=== PATIENT | male | born 1950 | race Caucasian/White ===

== ENCOUNTER 2018-01-13 20:44 | Emergency (ER) | payer MEDICARE, OTHER ==
--- NOTE | 2018-01-13 20:55 | ED Physician Documentation ---
Sore Throat/Dental Pain - HISTORIAN Historian: patient - HPI Stated Complaint: sore throat Chief Complaint: Sore Throat Onset: hours (5) Context: denies: Possible Infection Associated Symptoms: sore throat, other. denies: fever, chills Worsened By: other (laying back ) Further Comments: yes (he states his throat is sore and irriatated and he feels like it is swollen and wants it looked at to make sure it is not swelling shut. He states this happened last night before bed as well but went away. No shortness of breath. No fever) - ROS CONST: no problems CVS/RESP: denies: chest pain, shortness of breath GI/: denies: nausea, vomiting MS/SKIN/LYMPH: denies: rash NEURO/PSYCH: denies: headache - PAST HX Past History: none Other History: other (hypertension, edema (bilateral lower legs) COPD, ) Immunizations: UTD Allergies/Adverse Reactions: Allergies Allergy/AdvReac Type Severity Reaction Status Date / Time No Known Allergies Allergy Unverified 01/13/18 21:03 Home Medications: Ambulatory Orders Medication Instructions Recorded Aripiprazole [Abilify] 20 mg PO DAILY 01/13/18 Baclofen 10 mg PO TID 01/13/18 Furosemide [Lasix] 40 mg PO DAILY 01/13/18 Oxycodone HCl [Roxicodone] 5 mg PO TID 01/13/18 Potassium Chloride [Klor-Con 10] 10 meq PO DAILY 01/13/18 - SOCIAL HX Smoking History: cigarettes Alcohol Use: none Drug Use: none - FAMILY HX Family History: No - VITAL SIGNS Vital Signs: Vital Signs Temp Pulse Resp BP Pulse Ox 98.6 F 76 22 157/68 95 01/13/18 21:50 01/13/18 21:50 01/13/18 21:50 01/13/18 21:50 01/13/18 21:50 - REVIEWED ASSESSMENTS Nursing Assessment Reviewed: Yes Vitals Reviewed: Yes Progress - Progress Progress: 2139: states he is feeling "much better" he does have albuterol inhaler at home and he is not using this inhaler. DG ED Results Lab/Radiology - Orders Orders: ED Orders Category Date Time Status Ipratropium/Albuterol Sulfate [Duoneb] Med 01/13/18 21:17 Discontinued 3 ml NEB NOW ONE methylPREDNISolone ACETATE [Depo-Medrol] Med 01/13/18 21:15 Discontinued 80 mg IM NOW ONE Sore throat Physical Exam - EXAM General Appearance: no acute distress, alert Head/Neck: head nml inspection, trachea midline, no lymphadenopathy Eyes: eyes nml inspection Mouth/Throat: lips nml, gums nml, pharynx nml, no air way problems Ear/Nose: nml inspection Respiratory: no resp. distress, breath sounds nml CVS: reg. rate & rhythm, heart sounds nml Abdomen: soft, no organomegaly, normal bowel sounds, no distension Extremities: non-tender, other (bilateral lower legs with 3+ pitting edema (he states he saw his PCP today and his PCP is aware) ) Skin: warm/dry Neuro/Psych: oriented x3, mood/affect nml Discharge Clincal Impression: Sore throat Referrals: Primary Doctor,No [Primary Care Provider] - 2 Days Comments: 1. warm salt water gargles/warm tea with honey 2. Use CPAP 3. Use albuterol inhaler as ordered 4. Follow up with PCP tomorrow- call them tomorrow 5. Return to ER for any changes - increased shortness of breath or pain Condition: Stable Disposition: 01 HOME, SELF-CARE Decision to Admit: NO Date of Decison to Admit: 01/13/18 Decision Time: 21:53
[2018-01-13] MEDS ORDERED: methylPREDNISolone ACETATE 80 MG/ML VIAL IM ONE (21:15)
[2018-01-13] MEDS ORDERED: IPRATROPIUM/ALBUTEROL SULFATE 3 ML AMPUL.NEB NEB ONE (21:17)
[2018-01-13 21:51] VITALS: BP 157/68
== END 2018-01-13 21:50 | disposition home or self-care (01) ==
LOC: ED 20:44
DX: J02.9 Acute pharyngitis, unspecified (principal)
CPT/HCPCS: 94640; 96372; 99283; J1040